=== PATIENT | male | born 1990 | race Caucasian/White ===

== ENCOUNTER 2017-05-25 00:46 | Emergency (ER) | payer SELFPAY | END 2017-05-25 05:42 | disposition home or self-care (01) | LOC: ED 00:46 | DX: S30.810A Abrasion of lower back and pelvis, initial encounter (principal); H57.10 Ocular pain, unspecified eye; R00.0 Tachycardia, unspecified; Z88.0 Allergy status to penicillin; Z88.1 Allergy status to other antibiotic agents; Z88.5 Allergy status to narcotic agent; Z88.8 Allergy status to other drugs, medicaments and biological substances; X58.XXXA Exposure to other specified factors, initial encounter | CPT/HCPCS: 99283 ==